=== PATIENT | female | born 1960 | race Caucasian/White ===

== ENCOUNTER → 2017-11-25 07:28 | Outpatient (CLI) | payer OTHER, SELFPAY ==
--- NOTE | 2017-11-25 07:39 | BI_ITS ---
MAMMOGRAPHY - BILATERAL SCREENING REASON FOR EXAM: Female, 57 years old. Routine annual screening examination. PERTINENT HISTORY: Non-contributory. TECHNIQUE: Digital bilateral breast aarti (3D mammographic acquisition) in the CC and MLO projections. 2-D mediolateral oblique (MLO) and craniocaudad (CC) views of both breasts were obtained. CAD: Full Field Digital Mammography with Computer Added Detection was performed. COMPARISON: Comparison is made with prior study dated October 07, 2016. FINDINGS: Breast Composition: There are scattered areas of fibroglandular density. There are no dominant masses or suspicious calcifications. Stable appearance of the 2 7 mm nodules in the upper-outer quadrant of the right breast. No other significant abnormalities are identified. There has been no significant change since the prior study. BI/SCREENING MAMM (CAD), BILAT IMPRESSION: Stable bilateral screening mammogram. Yearly follow-up mammogram recommended. (A) ASSESSMENT CATEGORY: BIRADS Category 2: Benign. A letter regarding these results will be sent to the patient by the facility within 30 days. Approximately 10% of breast cancers are not detected by mammography. A normal mammogram should not delay biopsy of a clinically suspicious abnormality. [id number] Electronically Signed: Kang Garvin MD at 9:34 EDT Tel [phone], Service support ,
== END ==
PROVIDERS: Family Provider Internal Medicine; PCP Internal Medicine; Visit Provider Internal Medicine
DX: Z12.31 Encounter for screening mammogram for malignant neoplasm of breast (principal)
CPT/HCPCS: 77062; 77067; G0279

== ENCOUNTER → 2018-06-22 12:13 | Outpatient (CLI) | payer OTHER, SELFPAY ==
--- NOTE | 2018-06-22 12:15 | US_ITS ---
STUDY: THYROID ULTRASOUND REASON FOR EXAM: Female, 57 years old. History of thyroid cancer and bilateral thyroidectomy in 2000 TECHNIQUE: Ultrasound evaluation of the thyroid was performed with real-time and static williamson-scale imaging. COMPARISON: None. FINDINGS: RIGHT LOBE: Surgically absent LEFT LOBE: Surgically absent ISTHMUS: Surgically absent The regional lymph nodes are normal. No abnormal masses in the thyroid bed region. US/Thyroid IMPRESSION: Surgically absent thyroid without suspicious masses or lymph nodes Electronically Signed: Mekhi Lyon DO at 9:19 EST Tel , Service support ,
== END ==
PROVIDERS: Family Provider Internal Medicine; PCP Internal Medicine; Referring Provider Internal Medicine; Visit Provider Internal Medicine
DX: C73 Malignant neoplasm of thyroid gland (principal)
CPT/HCPCS: 76536

== ENCOUNTER → 2018-11-30 | Outpatient (CLI) | payer OTHER, SELFPAY ==
--- NOTE | 2018-11-30 09:57 | BI_ITS ---
MAMMOGRAPHY - BILATERAL SCREENING REASON FOR EXAM: Female, 58 years old. Routine annual screening examination. PERTINENT HISTORY: Non-contributory. TECHNIQUE: Digital bilateral breast aarti (3D mammographic acquisition) in the CC and MLO projections. 2-D mediolateral oblique (MLO) and craniocaudad (CC) views of both breasts were obtained. CAD: Full Field Digital Mammography with Computer Added Detection was performed. COMPARISON: Comparison is made with prior study dated November 25, 2017 and October 07, 2016. FINDINGS: Breast Composition: There are scattered areas of fibroglandular density. There are no dominant masses or suspicious calcifications. Stable small bilateral axillary lymph nodes. No other significant abnormalities are identified. There has been no significant change since the prior study. BI/SCREENING MAMM (CAD), BILAT IMPRESSION: Stable bilateral screening mammogram. Yearly follow-up mammogram recommended. (A) ASSESSMENT CATEGORY: BIRADS Category 2: Benign. A letter regarding these results will be sent to the patient by the facility within 30 days. Approximately 10% of breast cancers are not detected by mammography. A normal mammogram should not delay biopsy of a clinically suspicious abnormality. [id number] Electronically Signed: Kang Garvin, at 12:50 EDT , Service support ,
== END | disposition home or self-care (01) ==
LOC: OPBI 09:56
PROVIDERS: Family Provider Internal Medicine; PCP Internal Medicine; Referring Provider Internal Medicine; Visit Provider Internal Medicine
DX: Z12.31 Encounter for screening mammogram for malignant neoplasm of breast (principal)
CPT/HCPCS: 77063; 77067

== ENCOUNTER 2019-07-07 08:22 | Day surgery (SDC) | payer OTHER, SELFPAY ==
[2019-06-21 09:40] VITALS: BMI 30.9
--- NOTE | 2019-06-25 02:24 | HP_ITS ---
Intake Vital Signs 06/21/19 Height 5 ft 2.75 in 06/21/19 Weight: 173 lb 06/21/19 Body Mass Index (BMI) 30.9 06/21/19 Blood Pressure 138/88 H 06/21/19 Blood Pressure Location Rt brachial 06/21/19 Blood Pressure Position Sitting 06/21/19 Respiratory Rate 18 06/21/19 Pulse Rate 76 06/21/19 Pulse Source Monitor 06/21/19 Temperature 98.2 F 06/21/19 Temperature Source Oral 06/21/19 Pulse Ox 98 06/21/19 Oxygen Delivery Method room air Intake Visit Reasons: Thyroid and Cscope Consult Inside Meter Tester Required: No Is patient in pain?: No Allergies No Known Allergies Allergy (Unverified 06/21/19 09:41) Medications levothyroxine 137 mcg capsule 135 mcg PO DAILY cap 06/21/19 [History] PFSH Medical History Family history of colon cancer (Acute) History of thyroid cancer (Acute) Surgical History History of total thyroidectomy (Acute) Family History Father Colon cancer Cancer Diabetes Heart disease Hypertension High cholesterol Mother Cancer Heart disease Hypertension High cholesterol Sister Colon cancer melanoma rectum/colon Sister High cholesterol Thyroid disorder Social History (Updated 06/25/19 @ 14:25 by Reid Tapia MD) Smoking Status: Never smoker alcohol intake: never substance use type: does not use HPI HPI HPI: CHRIS CANTU, is a 58 F who presents to the office today for HPI HPI Surgical H&P: Yes HPI: CHRIS CANTU, is a 58 F who presents to the office today for Evaluation for endoscopy. Patient has been noticing some severe reflux particularly with spicy foods. She does not have any waterbrash symptoms. She also has a family history of colon cancer she last underwent an upper and lower endoscopy and January 30, 2014 her upper scope showed signs of eosinophilic esophagitis. Multiple biopsies did not show any signs of dysplasia or metaplasia. ROS General General: No weight change, appetite, fatigue, colon cancer, breast cancer or weakness HEENT HEENT: No difficulty swallowing, eye injury, eye surgery, swollen glands or hoarseness Endo Endocrine: Yes thyroid disease and thyroid cancer; no diabetes mellitus, Hair loss, heat intolerance or cold intolerance Skin Skin: No rash or changing moles Breast Breast: No left breast lump, right breast lump, nipple discharge, breast pain, abnormal mammogram, abnormal US or breast enlargement Musc Musculoskeletal: No back problems, arthritis, rheumatoid arthritis, gout or joint pain Cardio Cardiovascular: No murmur, pacemaker, heart disease, atrial fibrillation, high blood pressure, heart attack, heart stent, palpitations, shortness of breat with exertion or chest pain Psych Psychiatric: No depression, anxiety or hearing voices Resp Respiratory: No shortness of breath, No sleep apnea, No cough, No COPD, No asthma, No emphysema, No wheezing Gastro Gastrointestinal: No abdominal pain, No nausea or vomiting, No diarrhea, No constipation, No blood in stool, No acid reflux, No hemorrhoids, No ulcers, No gallbladder problem, No black,tarry stools Jakob Hematologic: No blood thinners, No blood disorders, No bleeding, No anemia, No blood clots Neuro Neurologic: No system reviewed and no additional complaints, except as docu, No as per HPI, No abnormal walking, No abnormal hearing, No abnormal movements, No abnormal speech, No behavioral changes, No burning sensations, No confusion, No seizure-like activity, No unsteadiness, No dizziness, No localized weakness, No frequent falls, No headache(s), No lack of coordination, No loss of vision, No memory loss, No numbness, No other visual disturbances, No radiating pain, No restless legs, No sensory deficit, No fainting, No tingling, No tremor(s), No weakness, No other Exam Const General: no acute distress, well developed, well hydrated Orientation: oriented to person, oriented to place, oriented to time [facility] Head: normocephalic, atraumatic Ears: external ears normal Mouth: moist mucous membranes Eyes Sclera: sclerae normal Pupils: normal by confrontation Neck Neck: no lymphadenopathy noted Neck mass: No Thyroid: thyroid normal, symmetrical Chest Chest palpation & inspection: normal inspection of the chest Breast Palpation: No nipple discharge Resp Effort & Inspection: normal respiratory effort Auscultation: clear to auscultation bilaterally Percussion: percussion normal Cardio Rate: regular rate Rhythm: regular rhythm Heart Sounds: no murmurs GI Palpation: soft, no hepatosplenomegaly, no masses, nontender Rectal Exam: other Other: Rectal exam deferred. Extrem General: normal to inspection, no clubbing, cyanosis or edema Assessment & Plan Problems 1. Heartburn R12 2. Gastroesophageal reflux disease, esophagitis presence not specified K21.9 3. Family history of colon cancer Z80.0 Plan I have discussed the above with the patient. I have offered the patient colonoscopy As well as an EGD for evaluation. I have explained the risks/benefits of the procedure and described the procedure. I have discussed the risks with the patient, including but not limited to: infection, bleeding, perforation of the GI tract requiring emergency surgery, inability to complete the procedure, injury to any internal organs, complications of anesthesia, etc. - the patient understands and agrees to proceed. I have answered all the patient's questions to the patient's satisfaction and the patient has no further questions. The patient has been given instructions for the colon cleansing preparation. 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 Orders Referrals: Endocrinology C73 Coding Level of Care Code Off vis,est,level 3 Diagnoses Heartburn R12 Gastroesophageal reflux disease, esophagitis presence not specified K21.9 ??Esophagitis presence: esophagitis presence not specified Family history of colon cancer Z80.0 06/25/19 [id number] <Electronically signed by Reid cruz MD> Date _ Reid Tapia MD I have re-examined the patient. There are no clinical changes since date of exam.
[2019-07-07] VITALS (9 sets, daily range): BP systolic 121–161; BP diastolic 79–103; PULSE 67–73; RESP 16; TEMP 36.4–36.8; O2SAT 98–100; BMI 29.8
--- NOTE | 2019-07-07 | EGD_PTH ---
PATIENT: CHRIS CANTU LOC: EN U#:[id number] AGE/SX: 58/F ROOM: RE07/07/[address]: Dr. Reid Tapia MD : 1960 BED: DIS: 07/07/2019 SPEC #: [id number] RECD: 07/07/19 14:08 STATUS: GAYLA HAILEY #: [id number] MELIA: 07/07/19 00:[address]: Reid Tapia DEPT: SURGICAL PATHOLOGY RECD BY: Tad Villalta ENTERED: 07/07/19 14:09 SP TYPE: EGD BIOPSY PRANAY DR: Dr. Jelena Stevens MD Tissues: Esophagus, NOS Procedures: Special Stain Group II Surgery Specimen Level IV Alcian Blue/PAS (control) HEADER OPERATION: Colonoscopy, EGD ([facility] [place]) PRE-OP DIAGNOSIS: Severe GERD with gastroesophageal diagnosis; screening TISSUE SUBMITTED: Esophageal distal biopsies MICROSCOPIC DIAGNOSIS Distal esophageal biopsy: Fragments of gastroesophageal mucosa with moderate chronic inflammation and changes consistent with gastroesophageal reflux disease. Intestinal metaplasia (goblet cell metaplasia) is not identified. See comment. RAFFAELE:fitz 07/08/19 COMMENT Alcian blue/PAS stain with matched control is used in the evaluation of the specimen. MICROSCOPIC DESCRIPTION Slides are reviewed. GROSS DESCRIPTION Received in fixative is one container labeled with the patient's name and designated esophageal distal biopsy. The specimen consists of multiple irregular fragments of light tang soft tissue that in aggregate measure 0.4 x 0.3 x 0.1 cm. The specimen is totally submitted in one cassette. / RAFFAELE:fitz 07/07/19 TC:3 CPT: 83223, 33832
[2019-07-07] MEDS: Lactated Ringers 1,000 ML 100 ML IV (08:57)
--- NOTE | 2019-07-07 09:59 | OP.EGD_ITS ---
Patient Name: Pooja Shepherd Procedure Date: 07/07/2019 9:27 AM Date of : 1960 Age: 58 Procedure: Upper GI endoscopy Indications: Heartburn, Gastro-esophageal reflux disease Providers: Reid Tapia MD Referring MD: Jelena Stevens Medicines: See the Anesthesia note for documentation of the administered medications Patient Profile: This is a 58 year old female. Refer to note in patient chart for documentation of history and physical. Complications: No immediate complications. Procedure: Pre-Anesthesia Assessment: - Prior to the procedure, a History and Physical was performed, and patient medications and allergies were reviewed. The patient's tolerance of previous anesthesia was also reviewed. The risks and benefits of the procedure and the sedation options and risks were discussed with the patient. All questions were answered, and informed consent was obtained. Prior Anticoagulants: The patient has taken no previous anticoagulant or antiplatelet agents. ASA Grade Assessment: II - A patient with mild systemic disease. After reviewing the risks and benefits, the patient was deemed in satisfactory condition to undergo the procedure. After obtaining informed consent, the endoscope was passed under direct vision. Throughout the procedure, the patient's blood pressure, pulse, and oxygen saturations were monitored continuously. The gastroscope was introduced through the mouth, and advanced to the second part of duodenum. The upper GI endoscopy was accomplished without difficulty. The patient tolerated the procedure well. Scope In: 9:37:18 AM Scope Out: 9:41:09 AM Total Procedure Duration Time 0 hours 3 minutes 51 seconds Findings: Mucosal changes including white plaques, congestion (edema) and mucosal friability were found in the distal esophagus and at the lower esophageal sphincter. Esophageal findings were graded using the Eosinophilic Esophagitis Endoscopic Reference Score (EoE-EREFS) as: Edema Grade 1 Present (decreased clarity or absence of vascular markings), Rings Grade 0 None (no ridges or rings seen), Exudates Grade 1 Mild (scattered white lesions involving less than 10 percent of the esophageal surface area), Furrows Grade 0 None (no vertical lines seen) and Stricture none (no stricture found). Biopsies were taken with a cold forceps for histology. The entire examined stomach was normal. No biopsies or other specimens were collected for this exam. The examined duodenum was normal. No biopsies or other specimens were collected for this exam. Impression: - Esophageal mucosal changes consistent with eosinophilic esophagitis. Biopsied. - Normal stomach. No specimens collected. - Normal examined duodenum. No specimens collected. Recommendation: - Discharge patient to home. - Resume previous diet. - Continue present medications. - Await pathology results. - Repeat upper endoscopy in 3 - 5 years for surveillance. - Return to my office in 1 week. Procedure Code(s): --- Professional --- 25443, Esophagogastroduodenoscopy, flexible, transoral; with biopsy, single or multiple Diagnosis Code(s): --- Professional --- K22.8, Other specified diseases of esophagus R12, Heartburn K21.9, Gastro-esophageal reflux disease without esophagitis CPT copyright 2017 [employer]. All rights reserved. The codes documented in this report are preliminary and upon coal trammer review may be revised to meet current compliance requirements. MD Reid Phelps MD 07/07/2019 9:59:30 AM This report has been signed electronically. Number of Addenda: 0 Note Initiated On: 07/07/2019 9:27 AM
--- NOTE | 2019-07-07 10:02 | OP.COLON_ITS ---
Patient Name: Pooja Shepherd Procedure Date: 07/07/2019 9:42 AM Date of : 1960 Age: 58 Procedure: Colonoscopy Indications: Family history of colon cancer in a first-degree relative Providers: Reid Tapia MD Referring MD: Jelena Stevens Medicines: See the Anesthesia note for documentation of the administered medications Patient Profile: This is a 58 year old female. Refer to note in patient chart for documentation of history and physical. Last Colonoscopy: 2013. Complications: No immediate complications. Procedure: Pre-Anesthesia Assessment: - Prior to the procedure, a History and Physical was performed, and patient medications and allergies were reviewed. The patient's tolerance of previous anesthesia was also reviewed. The risks and benefits of the procedure and the sedation options and risks were discussed with the patient. All questions were answered, and informed consent was obtained. Prior Anticoagulants: The patient has taken no previous anticoagulant or antiplatelet agents. ASA Grade Assessment: II - A patient with mild systemic disease. After reviewing the risks and benefits, the patient was deemed in satisfactory condition to undergo the procedure. - Prior to the procedure, a History and Physical was performed, and patient medications and allergies were reviewed. The patient's tolerance of previous anesthesia was also reviewed. The risks and benefits of the procedure and the sedation options and risks were discussed with the patient. All questions were answered, and informed consent was obtained. Prior Anticoagulants: The patient has taken no previous anticoagulant or antiplatelet agents. ASA Grade Assessment: II - A patient with mild systemic disease. After reviewing the risks and benefits, the patient was deemed in satisfactory condition to undergo the procedure. After I obtained informed consent, the scope was passed under direct vision. Throughout the procedure, the patient's blood pressure, pulse, and oxygen saturations were monitored continuously. The colonoscope was introduced through the anus and advanced to the cecum, identified by appendiceal orifice and ileocecal valve. The colonoscopy was performed without difficulty. The patient tolerated the procedure well. The quality of the bowel preparation was good. Scope In: 9:43:32 AM Scope Withdrawal Time 0 hours 6 minutes 20 seconds Scope Out: 9:54:59 AM Total Procedure Duration Time 0 hours 11 minutes 27 seconds Findings: Non-bleeding internal hemorrhoids were found during retroflexion. The hemorrhoids were mild and small. The exam was otherwise without abnormality. A few small-mouthed diverticula were found in the sigmoid colon. No biopsies or other specimens were collected for this exam. The exam was otherwise without abnormality. Impression: - Non-bleeding internal hemorrhoids. - The examination was otherwise normal. - Diverticulosis in the sigmoid colon. No specimens collected. - The examination was otherwise normal. Recommendation: - Discharge patient to home. - Resume previous diet. - Continue present medications. - Repeat colonoscopy in 5 years for surveillance. - Return to my office in 1 week. Procedure Code(s): --- Professional --- 50426, Colonoscopy, flexible; diagnostic, including collection of specimen(s) by brushing or washing, when performed (separate procedure) Diagnosis Code(s): --- Professional --- K64.8, Other hemorrhoids Z80.0, Family history of malignant neoplasm of digestive organs K57.30, Diverticulosis of large intestine without perforation or abscess without bleeding CPT copyright 2017 [employer]. All rights reserved. The codes documented in this report are preliminary and upon real time analyst review may be revised to meet current compliance requirements. MD Reid Phelps MD 07/07/2019 10:02:11 AM This report has been signed electronically. Number of Addenda: 0 Note Initiated On: 07/07/2019 9:42 AM
== END 2019-07-07 10:55 | disposition home or self-care (01) ==
LOC: EN 08:25 → AC 08:28
PROVIDERS: Family Provider Internal Medicine; PCP Internal Medicine; Referring Provider Internal Medicine; Visit Provider Surgery
PROC: 0DJD8ZZ Inspection of Lower Intestinal Tract, Via Natural or Artificial Opening Endoscopic (ICD-10-PCS; CPT 45378; principal; 2019-07-07 09:25)
DX: K21.0 Gastro-esophageal reflux disease with esophagitis (principal); K64.8 Other hemorrhoids; K57.30 Diverticulosis of large intestine without perforation or abscess without bleeding; R12 Heartburn; Z79.899 Other long term (current) drug therapy; Z80.0 Family history of malignant neoplasm of digestive organs
CPT/HCPCS: 43249; 45378; 88305; 88313; J7120

== ENCOUNTER → 2019-08-12 09:31 | Outpatient (CLI) | payer OTHER, SELFPAY ==
[2019-08-12 09:00] VITALS: BMI 29.8
[2019-08-12 10:34] LABS: Thyroid Stim Hormone (TSH) 1.17 uIU/mL (0.358-3.74)
[2019-08-16 13:07] LABS: Anti-Thyroglobulin AB < 1.0 IU/mL (0.0-0.9); Thyroglobulin, Serum Qt. 0.2 ng/mL (1.5-38.5)
== END ==
PROVIDERS: Family Provider Internal Medicine; PCP Internal Medicine; Referring Provider Internal Medicine Endocrinology, Diabetes & Metabolism; Visit Provider Internal Medicine Endocrinology, Diabetes & Metabolism
DX: C73 Malignant neoplasm of thyroid gland (principal); E89.0 Postprocedural hypothyroidism
CPT/HCPCS: 36415; 84432; 84439; 84443; 86800

== ENCOUNTER → 2020-06-12 | Outpatient (CLI) | payer OTHER, SELFPAY ==
[2019-08-12 09:00] VITALS: BMI 29.8
--- NOTE | 2020-06-12 09:05 | US_ITS ---
STUDY: THYROID ULTRASOUND REASON FOR EXAM: Female, 59 years old. Status post complete thyroidectomy secondary to thyroid cancer in 2000, for follow-up. TECHNIQUE: Ultrasound evaluation of the thyroid was performed with real-time and static williamson-scale imaging. COMPARISON: June 22, 2018. FINDINGS: Thyroid gland is absent compatible with history of thyroidectomy. Normal lymph node left lateral neck measuring 1.4 x 0.5 x 0.4 cm.. US/Thyroid IMPRESSION: Surgically absent thyroid gland without evidence of recurrence of tumor. Electronically Signed: Tian Monk MD at 5:58 EDT , Service support ,
== END | disposition home or self-care (01) ==
PROVIDERS: PCP Internal Medicine; Referring Provider Internal Medicine; Visit Provider Internal Medicine
DX: C73 Malignant neoplasm of thyroid gland (principal)
CPT/HCPCS: 76536

== ENCOUNTER → 2020-11-21 12:20 | Outpatient (CLI) | payer OTHER, SELFPAY ==
[2019-08-12 09:00] VITALS: BMI 29.8
--- NOTE | 2020-11-21 12:23 | BI_ITS ---
MAMMOGRAPHY - BILATERAL SCREENING 3-D TOMOSYNTHESIS REASON FOR EXAM: Female, 59 years old. SCREENING PERTINENT HISTORY: No significant family history. TECHNIQUE: 2-D mammograms and 3-D Tomosynthesis of the breast (s) were performed. CAD was performed. COMPARISON: 11/30/2018 FINDINGS: The breast composition is composed of scattered fibroglandular density. Scattered benign calcifications are seen. No dense spiculated masses or suspicious microcalcifications are identified. No architectural distortion is identified. There is no skin thickening or retraction. There has been no significant change since the prior study. BI/SCRN MAMM (CAD)W/NEVA BILAT IMPRESSION: No mammographic signs of malignancy. Routine yearly mammograms recommended. ASSESSMENT CATEGORY: BIRADS Category 2: Benign. A letter regarding these results will be sent to the patient by the facility within 30 days. FOLLOW UP RECOMMENDATION: Yearly follow up mammogram recommended. (A) Approximately 10% of breast cancers are not detected by mammography. A normal mammogram should not delay biopsy of a clinically suspicious abnormality. Electronically Signed: Ricardo Bangura MD at 13:50 EDT , Service support ,
--- NOTE | 2020-11-21 12:26 | BD_ITS ---
STUDY: DUAL ENERGY X-RAY ABSORPTIOMETRY / DXA REASON FOR EXAM: Female, 60 years old. Z780. Postmenopausal. Loss of height. TECHNIQUE: Bone Mineral Density (BMD) measurements of lumbar spine and bilateral hips were obtained. COMPARISON: Comparison is made with prior examination dated 10/22/2016. FINDINGS: Lumbar Spine (L1-L4): g/cm2 (0.946) / T-score (-2.0) / Z-score (-0.8) Findings are suggestive of osteopenia with a moderate fracture risk. Left Femur Total: g/cm2 (0.989) / T-score (-0.2) / Z-score (0.8) Left Femoral Neck: g/cm2 (0.980) / T-score (-0.4) / Z-score (0.8) Right Femur Total: g/cm2 (0.980) / T-score (-0.2) / Z-score (0.7) Right Femoral Neck: g/cm2 (0.997) / T-score (-0.3) / Z-score (0.9) The T-Scores on the most recent prior examination were: Lumbar Spine (L1-L4): There has been worsening of bone density since the previous examination. Left Femur Total: which represents a worsening of 5.2%. Right Femur Total: which represents a worsening of 7.1%. BD/Dexa Bone Density Study IMPRESSION: The patient is considered osteopenic as outlined below according to World [employer] Organization (WHO) criteria with a moderate fracture risk. There has been worsening of bone density since the previous examination. Reference Information: The T-score is the number of standard deviations above or below the standard which is normal for young adults at their peak bone mineral density. The World Health Organization (WHO) interprets the T-scores as follows: Above -1 Normal bone density Between -1 and -2.5 Osteopenia Equal to / or below -2.5 Osteoporosis As a practical clinical guideline, osteopenia may be graded as follows: Mild -1 through -1.5 Moderate -1.6 through -2.0 Severe -2.1 through -2.4 The Z-score is the number of standard deviations above or below age-matched controls. A Z-score of less than -1.5 would be considered abnormal. References: 1. NIH Osteoporosis and Related Bone Diseases www osteo.org 2. International Society for Clinical Densitometry www iscd.org 3. National Osteoporosis Foundation www nof.org Electronically Signed: Kang Garvin MD at 12:37 EDT , Service support ,
== END ==
PROVIDERS: PCP Internal Medicine; Referring Provider Internal Medicine; Visit Provider Internal Medicine
DX: Z78.0 Asymptomatic menopausal state (principal); Z12.31 Encounter for screening mammogram for malignant neoplasm of breast
CPT/HCPCS: 77063; 77067; 77080

== ENCOUNTER → 2021-04-27 | Outpatient (CLI) | payer OTHER, SELFPAY | END | disposition home or self-care (01) | LOC: LABSPEC 12:37 | PROVIDERS: PCP Internal Medicine; Visit Provider Internal Medicine | DX: Z20.822 Contact with and (suspected) exposure to COVID-19 (principal) | CPT/HCPCS: 87635; U0005; U0003 ==

== ENCOUNTER → 2023-01-27 | Outpatient (CLI) | payer OTHER, SELFPAY ==
--- NOTE | 2023-01-27 10:20 | US_ITS ---
EXAM: US SOFT TISSUES HEAD AND NECK, THYROID CLINICAL INDICATION: WELL WOMAN EXAM TECHNIQUE: Greyscale and color doppler imaging was performed of the thyroid gland. COMPARISON: 06/12/2020 FINDINGS: LEFT THYROID LOBE: Patient is status post thyroidectomy. Possible small amount of residual thyroid tissue in the left thyroid bed measuring 1.6 x 0.5 x 0.5 cm. RIGHT THYROID LOBE: Status post thyroidectomy. ISTHMUS: Status post thyroidectomy. US/Thyroid IMPRESSION: 1. Previous thyroidectomy. 2. Possible small amount of residual thyroid tissue in the left thyroid bed measuring 1.6 x 0.5 x 0.5 cm. Consider a follow-up nuclear medicine thyroid uptake and scan if clinically indicated. Electronically Signed: Bryn Pete MD at 1:03 EDT ,
== END | disposition home or self-care (01) ==
LOC: US 10:16
PROVIDERS: PCP Internal Medicine; Referring Provider Internal Medicine; Visit Provider Internal Medicine
DX: E89.0 Postprocedural hypothyroidism (principal)
CPT/HCPCS: 76536

== ENCOUNTER → 2023-01-27 | Outpatient (CLI) | payer SELFPAY ==
--- NOTE | 2023-01-27 12:00 | CT_ITS ---
INDICATION: SCREENING EXAMINATION: CT CHEST WITHOUT CONTRAST - CT Chest W/O Contrast Injection. Cardiac over read examination. TECHNIQUE: Helically acquired images were obtained of the chest. A radiation dose optimization technique was used for this scan. IV Contrast dosage and agent: None. COMPARISON: None. FINDINGS: LUNGS, PLEURA AND LARGE AIRWAYS: Mild degree of increased markings in the medial aspect of the right middle lobe as well as in the posterior aspect of the lingular segment of the left upper lobe and both lung bases suggestive of scarring. No pleural effusion or thickening. No pneumothorax. THYROID: No thyroid lesions. HEART AND PERICARDIUM: Heart size is normal. No pericardial effusion. CORONARY ARTERIES: Coronary artery calcification is seen. VESSELS: Mild calcific plaque at the level of the aortic arch. MEDIASTINUM AND TIBURCIO: No mediastinal or hilar adenopathy. Esophagus is unremarkable. No hiatal hernia. UPPER ABDOMEN: 1.1 cm cyst in the posterior aspect of the right lobe of the liver. BONES: No suspicious lytic or blastic abnormality. CT/Limited Chest CT Cardiac Only IMPRESSION: Coronary artery calcification. Mild scarring as described. Electronically Signed: Kang Garvin MD at 8:35 EDT ,
--- NOTE | 2023-01-27 13:08 | CA.SCORE ---
Calcium Scoring Date of Study:: 01/27/23 Indications Indications: Screening Coronary Calcium Scoring: High-resolution Computed Tomographic imaging of the chest was performed on [01/27/23 ], with particular attention paid to the coronary arteries. Images from the examination were analyzed for the presence and extent of coronary artery calcification , using coronary calcium quantification software. The patient tolerated the procedure well and there were no complications. The results of the coronary calcification analysis are provided below. Findings Coronary Artery Left Main (LM): 10.3 Left Anterior Descending (LAD): 1 Left Circumflex (LCX): 0 Right Coronary Artery (RCA): 0 Total Agatston Score: 11.3 Percentile Rankin-75th percentile Calcium Scoring Interpretation: Different methods to categorize the overall amount of coronary plaque. Overall amount CAC SIS Visual of coronary plaque P1 Mild -100 <2 1-2 vessels with mild amount of plaque P2 Moderate 101-300 3-4 1-2 vessels with moderate amount, 3 vessels with mild amount of plaque P3 Severe 301-999 5-7 3 vessels with moderate amount, 1 vessel with severe amount of plaque P4 Extensive >1000 >8 2-3 vessels with severe amount of plaque Calcium Score: Mild: 1-2 vessels w/mild amount of plaque Conclusion: Mild atherosclerotic plaquing noted.
== END | disposition home or self-care (01) ==
PROVIDERS: PCP Internal Medicine; Referring Provider Internal Medicine; Visit Provider Internal Medicine
DX: E78.00 Pure hypercholesterolemia, unspecified (principal)
CPT/HCPCS: 75571; 76380

== ENCOUNTER → 2024-01-09 | Outpatient (CLI) | payer OTHER, SELFPAY ==
--- NOTE | 2024-01-09 14:18 | US_ITS ---
STUDY: ULTRASOUND OF THE FEMALE PELVIS - COMPLETE REASON FOR EXAM: Female, 63 years old. adnexal mass LMP: TECHNIQUE: Transabdominal and Transvaginal TECHNICAL QUALITY: Adequate. COMPARISON: None. FINDINGS: The uterus is anteverted and is in a midline position. The uterus measures 5.8 x 4.0 x 2.2 cm. There is a Nabothian cyst of the cervix. The endometrium measures 3 mm in thickness, and is hyperechoic. There is no demonstrated endometrial mass. There is trace endocervical canal fluid. There is no demonstrated myometrial mass. I.U.D. - The patient does not have an I.U.D. The right ovary is visualized. The right ovary measures 2.1 x 1.3 x 1.1 cm. There is a 1.1 cm cyst. There is no visualized right adnexal mass or complex lesion. There is normal arterial and normal venous vascularity. The left ovary is non-visualized. There is no fluid in the cul-de-sac. The pre void volume of the bladder was 460 ml. US/Pelvic w/ Transvaginal IMPRESSION: Left ovary is not seen. Otherwise unremarkable. Electronically Signed: George Paniagua MD at 18:27 EDT ,
--- NOTE | 2024-01-09 14:18 | US_ITS ---
INDICATION: thyroid malignant neoplasm EXAMINATION: Ultrasound US Thyroid (eg thyroid, parathyroid, parotid) TECHNIQUE: Mckeon scale and color doppler imaging was performed of the thyroid gland. COMPARISON: FINDINGS: Status post thyroidectomy. No mass or collection is noted. US/Thyroid IMPRESSION: No pathology is noted. Status post thyroidectomy. Electronically Signed: Harman Moya DO at 16:37 EDT ,
== END | disposition home or self-care (01) ==
PROVIDERS: PCP Internal Medicine; Referring Provider Internal Medicine; Visit Provider Internal Medicine
DX: C73 Malignant neoplasm of thyroid gland (principal); N94.89 Other specified conditions associated with female genital organs and menstrual cycle
CPT/HCPCS: 76536; 76830; 76856

== ENCOUNTER → 2024-04-15 | Outpatient (CLI) | payer OTHER, SELFPAY ==
--- NOTE | 2024-04-15 09:19 | BI_ITS ---
MAMMOGRAPHY - BILATERAL SCREENING REASON FOR EXAM: Female, 63 years old. Routine annual screening examination. PERTINENT HISTORY: Non-contributory. TECHNIQUE: Digital bilateral breast neva (3D mammographic acquisition) in the CC and MLO projections. 2-D mediolateral oblique (MLO) and craniocaudad (CC) views of both breasts were obtained. CAD: Full Field Digital Mammography with Computer Added Detection was performed. COMPARISON: Comparison is made with prior study November 21, 2020 and November 30, 2018. FINDINGS: Breast Composition: There are scattered areas of fibroglandular density. There are no dominant masses or suspicious calcifications. Stable 3 mm nodule in the upper outer quadrant of the right breast. No other significant abnormalities are identified. There has been no significant change since the prior study. BI/SCRN MAMM (CAD)W/NEVA BILAT IMPRESSION: Stable bilateral screening mammogram. Yearly follow-up mammogram recommended. (A) ASSESSMENT CATEGORY: BIRADS Category 2: Benign. A letter regarding these results will be sent to the patient by the facility within 30 days. Approximately 10% of breast cancers are not detected by mammography. A normal mammogram should not delay biopsy of a clinically suspicious abnormality. [id number] Electronically Signed: Kang Garvin MD at 10:17 EDT ,
--- NOTE | 2024-04-15 09:22 | BD_ITS ---
STUDY: DUAL ENERGY X-RAY ABSORPTIOMETRY / DXA REASON FOR EXAM: Female, 63 years old. [id number] TECHNIQUE: Bone Mineral Density (BMD) measurements of lumbar spine and bilateral hips were obtained. COMPARISON: Comparison is made with prior study November 21, 2020. FINDINGS: Lumbar Spine (L1-L4): g/cm2 (0.802) / T-score (-2.0) / Z-score (-0.3) Findings are suggestive of osteopenia with a moderate fracture risk. Left Femur Total: g/cm2 (0.846) / T-score (-0.8) / Z-score (0.3) Left Femoral Neck: g/cm2 (0.791) / T-score (-0.5) / Z-score (0.9) Right Femur Total: g/cm2 (0.696) / T-score (-2.0) / Z-score (-0.9) Right Femoral Neck: g/cm2 (0.658) / T-score (-1.7) / Z-score (-0.3) The T-Scores on the most recent prior examination were: Lumbar Spine (L1-L4): There has been worsening of bone density since the previous examination. Left Femur Total: which represents a worsening of 8.3%. Right Femur Total: which represents a worsening of 23.8%. BD/Dexa Bone Density Study IMPRESSION: The patient is considered osteopenic as outlined below according to World Bren[employer] Organization (WHO) criteria with a moderate fracture risk. There has been worsening of bone density since the previous examination. Reference Information: The T-score is the number of standard deviations above or below the standard which is normal for young adults at their peak bone mineral density. The World Health Organization (WHO) interprets the T-scores as follows: Above -1 Normal bone density Between -1 and -2.5 Osteopenia Equal to / or below -2.5 Osteoporosis As a practical clinical guideline, osteopenia may be graded as follows: Mild -1 through -1.5 Moderate -1.6 through -2.0 Severe -2.1 through -2.4 The Z-score is the number of standard deviations above or below age-matched controls. A Z-score of less than -1.5 would be considered abnormal. References: 1. NIH Osteoporosis and Related Bone Diseases www osteo.org 2. International Society for Clinical Densitometry www iscd.org 3. National Osteoporosis Foundation www nof.org Electronically Signed: Kang Garvin MD at 9:40 EDT ,
== END | disposition home or self-care (01) ==
LOC: OPBI 09:17
PROVIDERS: PCP Internal Medicine; Referring Provider Internal Medicine; Visit Provider Internal Medicine
DX: Z12.31 Encounter for screening mammogram for malignant neoplasm of breast (principal); N95.9 Unspecified menopausal and perimenopausal disorder; Z78.0 Asymptomatic menopausal state
CPT/HCPCS: 77063; 77067; 77080

== ENCOUNTER → 2024-05-03 | Outpatient (CLI) | payer OTHER, SELFPAY ==
--- NOTE | 2024-05-03 10:40 | US_ITS ---
STUDY: ULTRASOUND TRANSVAGINAL CLINICAL: Female, 63 years old. adnexal mass -- due in Sept TECHNIQUE: Transvaginal COMPARISON: 01/09/2024 FINDINGS: Normal uterine size measuring 6.3 x 4.4 x 2.6 cm in maximal craniocaudal dimension. There are no myometrial masses. Normal endometrial thickness measuring 2 mm. There are no endometrial masses, and there is no fluid in the endometrial cavity. Normal uterine cervix. Normal right ovary, measuring 2.1 x 1.4 x 1.4 cm. There are multiple follicles without a dominant cyst. Normal left ovary, measuring 2.4 x 2.1 x 1.8 cm. There are multiple follicles without a dominant cyst. There is no free fluid in the pelvis. Polycystic ovary disease: No. US/Transvaginal Non- IMPRESSION: Normal transvaginal pelvic ultrasound. Electronically Signed: Blayne Cantor MD at 14:28 EDT ,
== END | disposition home or self-care (01) ==
PROVIDERS: PCP Internal Medicine; Referring Provider Internal Medicine; Visit Provider Internal Medicine
DX: N94.89 Other specified conditions associated with female genital organs and menstrual cycle (principal)
CPT/HCPCS: 76830

== ENCOUNTER → 2025-05-09 | Outpatient (CLI) | payer OTHER, SELFPAY ==
--- NOTE | 2025-05-09 11:00 | BI_ITS ---
EXAM: SCRN MAMM (CAD)W/NEVA BILAT DATE: 05/09/2025 CLINICAL HISTORY: F, Age 64 y/o , SCREENING No family history. TECHNIQUE: Procedure Code: [id number] Modality: MG Procedure: SCRN MAMM (CAD)W/NEVA BILAT COMPARISON: Prior exam(s) dated April 15, 2024.. FINDINGS: TISSUE DENSITY: There are scattered areas of fibroglandular density. Bilateral Breast Mammographic Findings: No significant masses, calcifications or other abnormalities are identified. Stable 3 mm well-defined nodule in the upper lateral aspect of the right breast suggestive of a small lymph node. Stable small benign-appearing bilateral axillary lymph nodes. No suspicious masses, areas of developing architectural distortion, or suspicious calcifications. There has been no significant interval change. BI/SCRN MAMM (CAD)W/NEVA BILAT IMPRESSION: Stable bilateral screening mammogram. OVERALL FINAL ASSESSMENT BI-RADS 2: BENIGN RECOMMENDATION: Routine annual follow-up in 1 Year Additional Recommendation none A letter with findings and recommendations will be mailed to the patient. Reading Location: [place] [id number]
== END | disposition home or self-care (01) ==
LOC: OPBI 10:49
PROVIDERS: PCP Internal Medicine; Referring Provider Internal Medicine; Visit Provider Internal Medicine
DX: Z12.31 Encounter for screening mammogram for malignant neoplasm of breast (principal)
CPT/HCPCS: 77063; 77067